=== PATIENT | male | born 1955 | race Two or more races ===

== ENCOUNTER 2017-01-11 08:50 | Day surgery (SDC) | payer OTHER ==
[2017-01-11] MEDS ORDERED: D5 LR 1000 ML 1,000 ML IV ONE (08:56)
[2017-01-11] MEDS ORDERED: DIPRIVAN VIAL 20 ML ONE (10:39)
[2017-01-11] MEDS ORDERED: DIPRIVAN VIAL 10 ML ONE (11:04)
[2017-01-11 11:27] VITALS: BP 117/64
== END 2017-01-11 11:30 | disposition home or self-care (01) ==
LOC: SURG1 08:50
PROVIDERS: ATTEND Internal Medicine Gastroenterology
PROC: 0DBN8ZX Excision of Sigmoid Colon, Via Natural or Artificial Opening Endoscopic, Diagnostic (ICD-10-PCS; principal; 2017-01-11 11:15)
PROC: 0DBL8ZX Excision of Transverse Colon, Via Natural or Artificial Opening Endoscopic, Diagnostic (ICD-10-PCS; principal; 2017-01-11 11:15)
PROC: 0DJD8ZZ Inspection of Lower Intestinal Tract, Via Natural or Artificial Opening Endoscopic (ICD-10-PCS; principal; 2017-01-11 11:15)
DX: Z12.11 Encounter for screening for malignant neoplasm of colon (principal); D64.89 Other specified anemias; K63.5 Polyp of colon; K57.30 Diverticulosis of large intestine without perforation or abscess without bleeding; K64.0 First degree hemorrhoids; D12.3 Benign neoplasm of transverse colon
CPT/HCPCS: A4217; J3490; J7120